=== PATIENT | male | born 1960 | race Caucasian/White ===

== ENCOUNTER → 2016-12-01 | Outpatient (CLI) | payer BC ==
[~2016-12-01] MED LIST: ASPI81TA28 PO; CLIN1CAP51 PO; LAMO150T32 PO
[2016-12-01 14:57] LABS: BASO % 0.4 %; BASO ABS # 0.02 K/uL (0-0.2); COMPLETE YES; EOS % 2.3 %; HEMATOCRIT 40.6 % (42-52); LYMPH % 32.7 %; LYMPH ABS # 1.85 K/uL (1.2-3.4); MEAN CELL VOLUME 89.6 fL (80-100); MEAN CORPUSCULAR HEMOGLOBIN 31.1 pg (25-34); MEAN CORPUSCULAR HGB CONC 34.7 g/dl (32-36); MEAN PLATELET VOLUME 10.3 fL (7.4-10.4); MONO % 6.7 %; NEUT % 57.9 %; PLATELET COUNT 266 K/uL (130-400); RED BLOOD COUNT 4.53 M/uL (4.7-6.1); WHITE BLOOD COUNT 5.66 K/uL (4.8-10.8)
[2016-12-01 15:13] LABS: PARTIAL THROMBOPLASTIN RATIO 1.2; PROTHROMBIN TIME (PATIENT) 10.2 SECONDS (9.0-12.0)
[2016-12-01 15:14] LABS: POTASSIUM 4.1 mmol/L (3.5-5.1)
== END | disposition home or self-care (01) ==
LOC: C.CPL 13:53
DX: Z01.818 Encounter for other preprocedural examination (principal)

== ENCOUNTER → 2016-12-05 | Day surgery (SDC) | payer BC ==
[2016-12-04 07:54] VITALS: Ht 188 cm; Wt 90.9 kg
[~2016-12-05] VITALS: Ht 188 cm; Wt 90.9 kg
[~2016-12-05] MED LIST changes: +ATROPINE SULFATE 0.1 MG/ML 5ML SYR IV PRN; +CEFAZOLIN 2000 MG/60 ML D5W IV SCH; +DEXAMETHASONE SOD INJ 4 MG/ML VIAL ONE; +EpHEDrine SULFATE INJ 50 MG/ML AMP IV PRN; +EpINEphrine INJ 1MG/ML AMP 1 MG/ML AMP ONE; +FENTANYL CITRATE INJ 50 MCG/1 ML 2 ML VIAL IV PRN; +FENTANYL CITRATE INJ 50 MCG/1 ML 2 ML VIAL ONE; +HYDROCODONE/ACETAMOPHEN 5/325MG TAB PO PRN; +LACTATED RINGER'S 1000ML 1,000 ML IV SCH; +LIDOCAINE 4% MPF SOAK 5 ML = 1 DOSE TOP ONE; +LIDOCAINE HCL 2% 2 ML VIAL (20MG/ML) ONE; +LIDOCAINE/EPINEPHRINE 1% INJ 50 ML VIAL ONE; +MIDAZOLAM HCL 1 MG/ML 2ML VIAL ONE; +ONDANSETRON INJ 2 MG/ML 2 ML VIAL IV PRN; +ONDANSETRON INJ 2 MG/ML 2 ML VIAL ONE; +OXYMETAZOLINE HCL 0.05% NA SPR 15 ML BTL PRN; +OXYMETAZOLINE HCL 0.05% NA SPR 15 ML BTL SCH; +PATIENT'S ALLERGY INFO NEEDS ENTERED SCH; +PROPOFOL IV EMULSION 10 MG/ML 20 ML VIAL IV ONE; +ROCURONIUM BROMIDE 10 MG/ML 5 ML VIAL IV ONE; +SUCCINYLCHOLINE CHLORIDE 20 MG/ML 10 ML VIAL IV ONE
--- NOTE | 2016-12-05 09:59 | History & Physical Bridge - [place] ---
H&P Re-Evaluation Bridge Note: I have examined the patient, reviewed the History & Physical and in the interval since the performance of the History & Physical I have noted the following changes of clinical significance: No changes noted
--- NOTE | 2016-12-05 12:00 | [facility] Operative Report ---
Operative Report Operative Date Dec 05, 2016. Pre-Operative Diagnosis Nasal Fracture, Nasal Septal Deviation Post-Operative Diagnosis Same Procedure(s) Performed Closed Reduction Of Nasal Fracture With Stabilization And Open Repair Of Septal Fracture Surgeon Dr Romero Correspondence Dictator Surgeon(s) None Estimated Blood Loss 10ml Findings 1. depressed Right nasal bone fracture with bony dorsum deviation to Right and middle third deviation to left 2. multiple septal fractures with severe L DNS as a result Specimens None I attest to the content of the Intraoperative Record and any orders documented therein. Any exceptions are noted below.
--- NOTE | 2016-12-05 12:03 | Discharge Instructions ---
Discharge Instructions Date of Service Dec 05, 2016. Admission Reason for Admission: Nasal Fracture, Nasal Septal Deviation Discharge Discharge Diagnosis / Problem: SAME Discharge Goals Goal(s): Therapeutic intervention Activity Recommendations Activity Limitations: as noted below LIGHT ACTIVITY AND NO NOSE BLOWING FOR 2 WEEKS; NO DRIVING WHILE ON [place] . Current Hospital Diet Patient's current hospital diet: Discharge Diet Recommended Diet: Regular Diet Procedures Procedures Performed: Closed Reduction Of Nasal Fracture With Stabilization And Open Repair Of Septal Fracture Pending Studies Studies pending at discharge: no Medical Emergencies . Who to Call and When: Medical Emergencies: If at any time you feel your situation is an emergency, please call 911 immediately. . Non-Emergent Contact Non-Emergency issues call your: Surgeon . . "Provider Documentation" section prepared by Curt Romero. . VTE Core Measure Inpt VTE Proph given/why not?: SCD's
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
[2016-12-05 12:53] VITALS: TEMP 36.5
--- NOTE | 2016-12-05 12:53 | Anesthesia Progress Nt - [facility] ---
Anesthesia Post Op Note Date & Time Dec 05, 2016 at 12:53 Vital Signs Pain Intensity: 2 Vital Signs Past 12 Hours Date Time Temp Pulse Resp B/P (MAP) Pulse Ox O2 Delivery O2 Flow Rate FiO2 12/05/16 12:43 65 16 96 12/05/16 12:43 36.8 67 16 12/05/16 12:41 121/81 12/05/16 12:38 65 8 12/05/16 12:38 62 8 94 12/05/16 12:36 129/88 12/05/16 12:33 66 8 93 12/05/16 12:33 65 8 12/05/16 12:31 121/85 12/05/16 12:29 36.7 64 16 121/82 94 Room Air 12/05/16 12:28 62 5 97 12/05/16 12:28 62 5 12/05/16 12:27 61 3 97 12/05/16 12:27 62 3 12/05/16 12:26 127/88 12/05/16 12:22 62 7 96 12/05/16 12:22 62 7 12/05/16 12:21 124/87 12/05/16 12:17 64 8 96 12/05/16 12:17 64 8 12/05/16 12:16 116/86 12/05/16 12:15 63 5 12/05/16 12:15 63 5 96 12/05/16 12:11 116/82 12/05/16 12:10 63 14 95 12/05/16 12:10 63 14 12/05/16 12:06 119/84 12/05/16 12:06 36.3 65 12 126/80 97 Humidified Oxygen 6 12/05/16 12:05 66 12 126/80 12/05/16 12:05 12 12/05/16 09:17 36.4 68 20 133/88 (103) 96 Room Air Notes Mental Status: alert / awake / arousable, participated in evaluation Pt Amnestic to Procedure: Yes Nausea / Vomiting: adequately controlled Pain: adequately controlled Airway Patency, RR, SpO2: stable & adequate BP & HR: stable & adequate Hydration State: stable & adequate Anesthetic Complications: no major complications apparent
[2016-12-05 13:32] VITALS: BP 127/81; PULSE 60; O2SAT 96
== END | disposition home or self-care (01) ==
LOC: X.SURG 08:51
DX: S02.2XXA Fracture of nasal bones, initial encounter for closed fracture (principal); J34.2 Deviated nasal septum; W22.8XXA Striking against or struck by other objects, initial encounter; Y92.832 Beach as the place of occurrence of the external cause; Y93.18 Activity, surfing, windsurfing and boogie boarding; E78.00 Pure hypercholesterolemia, unspecified; Z79.82 Long term (current) use of aspirin; Z79.899 Other long term (current) drug therapy

== ENCOUNTER 2016-12-17 06:38 | Inpatient (IN) | payer BC ==
[~2016-12-17] VITALS: Ht 188 cm; Wt 92.5 kg
[2016-12-17] VITALS (8 sets, daily range): BP systolic 131–144; BP diastolic 85–95; PULSE 70–87; TEMP 36.7–37.3; O2SAT 94–99; Ht 188 cm; Wt 92.5 kg
[~2016-12-17 06:38] MED LIST changes: -ASPI81TA28 PO; -ATROPINE SULFATE 0.1 MG/ML 5ML SYR IV PRN; -CEFAZOLIN 2000 MG/60 ML D5W IV SCH; -CLIN1CAP51 PO; -DEXAMETHASONE SOD INJ 4 MG/ML VIAL ONE; -EpHEDrine SULFATE INJ 50 MG/ML AMP IV PRN; -EpINEphrine INJ 1MG/ML AMP 1 MG/ML AMP ONE; -FENTANYL CITRATE INJ 50 MCG/1 ML 2 ML VIAL IV PRN; -FENTANYL CITRATE INJ 50 MCG/1 ML 2 ML VIAL ONE; -HYDROCODONE/ACETAMOPHEN 5/325MG TAB PO PRN; -LACTATED RINGER'S 1000ML 1,000 ML IV SCH; -LIDOCAINE 4% MPF SOAK 5 ML = 1 DOSE TOP ONE; -LIDOCAINE HCL 2% 2 ML VIAL (20MG/ML) ONE; -LIDOCAINE/EPINEPHRINE 1% INJ 50 ML VIAL ONE; -MIDAZOLAM HCL 1 MG/ML 2ML VIAL ONE; -ONDANSETRON INJ 2 MG/ML 2 ML VIAL IV PRN; -ONDANSETRON INJ 2 MG/ML 2 ML VIAL ONE; +OXYMETAZOLINE HCL 0.05% NA SPR 15 ML BTL NAE SCH; -OXYMETAZOLINE HCL 0.05% NA SPR 15 ML BTL PRN; -OXYMETAZOLINE HCL 0.05% NA SPR 15 ML BTL SCH; -PATIENT'S ALLERGY INFO NEEDS ENTERED SCH; -PROPOFOL IV EMULSION 10 MG/ML 20 ML VIAL IV ONE; -ROCURONIUM BROMIDE 10 MG/ML 5 ML VIAL IV ONE; -SUCCINYLCHOLINE CHLORIDE 20 MG/ML 10 ML VIAL IV ONE
[2016-12-17] MEDS ORDERED: CLIN1CAP51 PO (07:18)
[2016-12-17] MEDS ORDERED: FENTANYL CITRATE INJ 50 MCG/1 ML 2 ML VIAL ONE (08:52)
[2016-12-17] MEDS ORDERED: MIDAZOLAM HCL 1 MG/ML 2ML VIAL ONE (08:52)
[2016-12-17] MEDS ORDERED: LIDOCAINE/EPINEPHRINE 1% 20 ML VIAL ONE (09:17)
[2016-12-17] MEDS ORDERED: LIDOCAINE 4% INH SOLN 4 ML BTL ONE (09:18)
[2016-12-17] MEDS ORDERED: EpINEphrine INJ 1MG/ML AMP 1 MG/ML AMP ONE (09:18)
[2016-12-17] MEDS: CLINDAMYCIN IV 900 MG in DEXTROSE 5% 100ML 100 ML IV SCH ×3 (09:40→17:43)
[2016-12-17] MEDS ORDERED: BACITRACIN OINT 15 GM TUBE ONE (09:48)
[2016-12-17] MEDS ORDERED: ONDANSETRON INJ 2 MG/ML 2 ML VIAL ONE (10:09)
[2016-12-17] MEDS ORDERED: DEXAMETHASONE SOD INJ 4 MG/ML VIAL ONE (10:09)
[2016-12-17] MEDS ORDERED: LIDOCAINE HCL 2% 2 ML VIAL (20MG/ML) ONE (10:09)
[2016-12-17] MEDS ORDERED: SODIUM CHLORIDE 0.9% INJ 10 ML VIAL ONE (10:09)
[2016-12-17] MEDS ORDERED: SUCCINYLCHOLINE CHLORIDE 20 MG/ML 10 ML VIAL IV ONE (10:09)
[2016-12-17] MEDS ORDERED: CISATRACURIUM BESYLATE IV SOLN 2 MG/ML 10 ML VIAL ONE (10:09)
[2016-12-17] MEDS ORDERED: PROPOFOL IV EMULSION 10 MG/ML 20 ML VIAL IV ONE (10:09)
[2016-12-17] MEDS: LACTATED RINGER'S 1000ML 1,000 ML IV SCH ×2 (10:38→20:22)
--- NOTE | 2016-12-17 10:38 | [facility] Operative Report ---
Operative Report Operative Date Dec 17, 2016. Pre-Operative Diagnosis Nasal Septal Abscess/Hematoma Post-Operative Diagnosis same Procedure(s) Performed Incision and Drainage of Nasal Septal Abscess/Hematoma Surgeon Dr. Romero Clearance Rep Surgeon(s) none Estimated Blood Loss 50 ml Findings 1. old blood/clot in septal cavity with some devitalized tissue and cartilage debrided to healthy, bleeding, viable tissue/cartilage/bone 2. no purulence found today Specimens microbiology 1. Septal Mucosa- Culture and Sensitivity, Gram Stain I attest to the content of the Intraoperative Record and any orders documented therein. Any exceptions are noted below.
[2016-12-17] MEDS ORDERED: EpHEDrine SULFATE INJ 50 MG/ML AMP IV PRN (10:45)
[2016-12-17] MEDS ORDERED: ONDANSETRON INJ 2 MG/ML 2 ML VIAL IV PRN ×2 (10:45)
[2016-12-17] MEDS ORDERED: LABETALOL HCL IV 5 MG/ML 20ML IV PRN (10:45)
[2016-12-17] MEDS ORDERED: NALOXONE HCL 0.4 MG/1 ML VIAL/CARP IV PRN (10:45)
[2016-12-17] MEDS ORDERED: PROMETHAZINE HCL INJ 12.5 MG in SODIUM CHLORIDE 0.9% 50ML 50 ML IV PRN (10:45)
[2016-12-17] MEDS ORDERED: ATROPINE SULFATE 0.1 MG/ML 5ML SYR IV PRN (10:45)
[2016-12-17] MEDS ORDERED: FLUMAZENIL 0.1 MG/1 ML 10 ML VIAL IV PRN (10:45)
[2016-12-17] MEDS: FENTANYL CITRATE INJ 50 MCG/1 ML 2 ML VIAL IV PRN ×4 (10:53→11:14)
--- NOTE | 2016-12-17 11:35 | Anesthesiology Progress Note ---
Anesthesia Post Op Note Date & Time Dec 17, 2016 at 11:35 Vital Signs Pain Intensity: 4 Vital Signs Past 12 Hours Date Time Temp Pulse Resp B/P (MAP) Pulse Ox O2 Delivery O2 Flow Rate FiO2 12/17/16 11:30 70 17 134/84 98 Oxymask 3 12/17/16 11:20 80 15 130/96 98 Oxymask 4 12/17/16 11:10 71 12 143/94 98 Oxymask 4 12/17/16 11:00 69 13 132/107 100 Oxymask 10 12/17/16 10:50 73 13 155/92 100 Oxymask 10 12/17/16 10:44 36.3 70 16 150/100 99 Oxymask 10 12/17/16 07:18 36.7 80 18 131/95 (107) 99 Room Air Notes Mental Status: alert / awake / arousable, participated in evaluation Pt Amnestic to Procedure: Yes Nausea / Vomiting: adequately controlled Pain: adequately controlled Airway Patency, RR, SpO2: stable & adequate BP & HR: stable & adequate Hydration State: stable & adequate Anesthetic Complications: no major complications apparent
[2016-12-17] MEDS ORDERED: LABETALOL HCL IV 5 MG/ML 20ML IV ONE (12:15)
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
--- NOTE | 2016-12-17 14:45 | Progress Note ---
Progress Note Date of Service Dec 17, 2016. Progress Note ID Consult Dictated #[id number] A/P: 1. post op infection -Continue clinda, add ctx and vanco -? if 12/17 culture cancelled -check blood culture -thank you
[2016-12-17] MEDS ORDERED: VANCOMYCIN CONSULT ACTIVE PRN (15:15)
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
[2016-12-17] MEDS ORDERED: CEFTRIAXONE SOD INJ 2,000 MG in DEXTROSE 5% 50ML 50 ML IV SCH (16:00)
--- NOTE | 2016-12-17 16:08 | Pharmacy Progress Note ---
Pharmacy Antibiotic Consult Date of Service: Dec 17, 2016. Pharmacy Dosing Scope Pharmacy is consulted to initiate vancomycin IV dosing therapy, order appropriate labs and adjust drug dose/frequency. Subjective The patient is a 56 year old male admitted on Dec 17, 2016 at 07:35. S/P I&D nasal septal hematoma/abscess. Objective Height (Feet): 6 Height (Inches): 2 Weight (Kilograms): 92.530 Micro Results: 12/17 blood x2 pending 12/17 sinus antrum pending Recent Pertinent Medications Item Value Date Time Vancomycin HCl 530 ml @ 125 mls/hr 12/18/16 0500 1500 mg/Sodium Q12H/IV Chloride Clindamycin 106 ml @ 100 mls/hr 12/17/16 1800 Phosphate 900 mg/ Q8H/IV Dextrose Vancomycin HCl 545 ml @ 200 mls/hr 12/17/16 1700 2250 mg/Sodium TODAY@1700/IV Chloride Ceftriaxone 70 ml @ 100 mls/hr 12/17/16 1600 Sodium 2000 mg/ Q24H/IV 12/17/16 1540 Dextrose Clindamycin 106 ml @ 106 mls/hr 12/17/16 0600 Phosphate 900 mg/ PREOP/IV 12/17/16 1033 Dextrose Assessment & Plan Loading dose: vancomycin 2250 mg IV X 1 dose (~24 mg/kg) then: vancomycin 1500 mg IV every 12 hours. Goal peak level estimate: between 25-40mcg/mL. Goal trough level estimate: between 15-20 mcg/mL. Trough will be ordered for: 12/19/16 before 4th dose. Pharmacy will continue to follow and will adjust dose/frequency as necessary. Thank you
[2016-12-17] MEDS ORDERED: VANCOMYCIN INJ 2,250 MG in SODIUM CHLORIDE 0.9% 500ML 500 ML IV SCH (17:00)
[2016-12-17] MEDS: HYDROCODONE/ACETAMOPHEN 5/325MG TAB PO PRN (17:11)
[2016-12-18] MEDS: CLINDAMYCIN IV 900 MG in DEXTROSE 5% 100ML 100 ML IV SCH ×3 (01:49→17:46)
[2016-12-18 03:54] VITALS: BP 104/66; PULSE 71; TEMP 36.7; O2SAT 96
[2016-12-18] MEDS: VANCOMYCIN INJ 1,500 MG in SODIUM CHLORIDE 0.9% 500ML 500 ML IV SCH ×2 (04:13→17:40)
[2016-12-18] MEDS ORDERED: NURSING VERBAL MED ORDER ONE (06:00)
[2016-12-18 07:04] VITALS: BP 126/86; PULSE 70; TEMP 36.6; O2SAT 97
--- NOTE | 2016-12-18 07:44 | ENT PROGRESS NOTE ---
DATE: 12/18/2016 DATE: 12/18/2016 SUBJECTIVE: The patient is postoperative day #1 status post incision and drainage of septal hematoma/abscess. I appreciate Dr. Cecy Hsu's help from infectious disease on this patient. The patient was placed on clindamycin by me and then ceftriaxone and vancomycin were added. There was some confusion about the specimen that was obtained from my office on 12/16/2016 with microbiology but this has been now rectified. Inadvertently that sample was initially discarded but it was retrieved and they are going to run Gram stain and anaerobic cultures from that specimen. The Gram stain on the tissue from the operating room showed only rare white blood cells and no organisms seen. I believe that the more important sample is the sample from my office. The patient has no complaints this morning. He has had mild expected oozing of blood from his anterior nasal cavity and not too much bloody postnasal drip. Overall, he is actually breathing better through his nose now with Kowalski nasal splints than he did preoperatively. He is not having too much pain. He is afebrile and his vital signs are stable. OBJECTIVE: Examination shows that the Kowalski splints are in place and there is some expected blood and blood clot. Visualization of his external nose shows no evidence of erythema and there is no tenderness to palpation. His anterior nasal septum and columella looks less swollen and erythematous than it did yesterday. There is no evidence of bloody postnasal drip. ASSESSMENT AND PLAN: Postoperative day #1 status post incision and drainage of septal hematoma/abscess. Once again, I appreciate infectious disease input. We should wait to see what his cultures grow before deciding on his ultimate antibiotic regimen. I am wondering whether or not he may benefit from a PICC line if he is going to need long-term IV antibiotics. For now, keep him on the 3 antibiotics as recommended by infectious disease. Follow cultures closely.
[2016-12-18 08:41] LABS: CREATININE 0.82 mg/dl (0.60-1.40)
[2016-12-18] MEDS: ACETAMINOPHEN 325 MG TAB PO PRN (09:33)
[2016-12-18] MEDS: IMIPENEM/CILASTATIN IV 500 MG in DEXTROSE 5% 100ML 100 ML IV SCH ×3 (10:51→21:59)
--- NOTE | 2016-12-18 11:09 | Anesthesiology Progress Note ---
Anesthesia Post Op Note Date & Time Dec 18, 2016 at 11:09 Vital Signs Pain Intensity: 3.0 Vital Signs Past 12 Hours Date Time Temp Pulse Resp B/P (MAP) Pulse Ox O2 Delivery O2 Flow Rate FiO2 12/18/16 07:04 36.6 70 16 126/86 (99) 97 Room Air 12/18/16 03:54 36.7 71 16 104/66 (79) 96 Room Air 12/17/16 23:35 37.3 82 18 140/93 (109) 96 Room Air 12/17/16 23:26 Room Air Notes Mental Status: alert / awake / arousable, participated in evaluation Pt Amnestic to Procedure: Yes Nausea / Vomiting: adequately controlled Pain: adequately controlled Airway Patency, RR, SpO2: stable & adequate BP & HR: stable & adequate Hydration State: stable & adequate Anesthetic Complications: no major complications apparent
--- NOTE | 2016-12-18 13:07 | Progress Note ---
Subjective Date of Service: Dec 18, 2016. Subjective Pt evaluation today including: conversation w/ patient, physical exam, chart review, lab review pt seen in followup, doing well. ambulating in room. No f/c. culture from office growing probable pseudomonas species, OR culture with GNR. changed to imipenem, remains on gram + coverage as well pending final cultures. blood cultures pending. pain controlled. less weeping. eating well, no abd pain, no n/ v/d. All remaining ros reviewed and are negative. Objective Vital Signs Date Time Temp Pulse Resp B/P (MAP) Pulse Ox O2 Delivery O2 Flow Rate FiO2 12/18/16 07:37 Room Air 12/18/16 07:04 36.6 70 16 126/86 (99) 97 Room Air 12/18/16 03:54 36.7 71 16 104/66 (79) 96 Room Air 12/17/16 23:35 37.3 82 18 140/93 (109) 96 Room Air 12/17/16 23:26 Room Air 12/17/16 15:15 94 Room Air 12/17/16 15:00 36.7 84 20 143/87 (105) 94 Room Air 12/17/16 14:00 87 18 141/90 (107) 96 Room Air Physical Exam General Appearance: WD/WN, no apparent distress Eyes: normal inspection, EOMI ENT: + pertinent finding (dressing with min weeping, no bleeding) Neck: supple Respiratory/Chest: lungs clear, normal breath sounds, no respiratory distress Cardiovascular: regular rate, rhythm, no edema Abdomen: soft Extremities: non-tender, no pedal edema Neurologic/Psychiatric: alert, oriented x 3 Skin: normal color, warm/dry, no rash Laboratory Results Item Value Date Time Gram Stain - Final Resulted 12/17/16 0000 Abscess Nose Gram Stain - Final Resulted 12/17/16 1014 Sinus/Antrum Paranasal Last 24 Hours Test 12/18/16 07:27 Creatinine 0.82 mg/dl Est Creatinine Clear Calc Drug Dose 114.2 ml/min Estimated GFR () 113.0 Estimated GFR (Non- 97.5 Hepatitis C Antibody Screen NEG Assessment and Plan (1) Post op infection Assessment & Plan: will continue current abx, follow cultures, hopefully final soon. will adjust based on final micro. continue local care. d/w ent.
[2016-12-18 15:00] VITALS: BP 149/91; PULSE 63; TEMP 36.4; O2SAT 97
[2016-12-18] MEDS: HYDROCODONE/ACETAMOPHEN 5/325MG TAB PO PRN ×3 (15:05→23:51)
[2016-12-18 23:25] VITALS: BP 120/75; PULSE 63; TEMP 36.9; O2SAT 98
[2016-12-19] MEDS: CLINDAMYCIN IV 900 MG in DEXTROSE 5% 100ML 100 ML IV SCH ×2 (01:35→09:47)
[2016-12-19] MEDS ORDERED: VANCOMYCIN TROUGH SCH (03:30)
[2016-12-19] MEDS: IMIPENEM/CILASTATIN IV 500 MG in DEXTROSE 5% 100ML 100 ML IV SCH ×2 (04:21→09:47)
[2016-12-19] MEDS: VANCOMYCIN INJ 1,500 MG in SODIUM CHLORIDE 0.9% 500ML 500 ML IV SCH (04:21)
[2016-12-19 04:29] LABS: CREATININE 0.97 mg/dl (0.60-1.40)
[2016-12-19 07:06] VITALS: BP 123/83; PULSE 67; TEMP 36.7; O2SAT 95
--- NOTE | 2016-12-19 07:06 | ENT PROGRESS NOTE ---
DATE: 12/19/2016 The patient is postoperative day #2 status post incision and drainage of septal hematoma/abscess. The patient is in good spirits. He is having some increased pain on the right side and feels as if it is hard to swallow. He has not had any significant bleeding. He only has to change the nasal drip pad periodically. The patient is afebrile and his vital signs are stable. On examination, I am unable to see the right-sided splint and it looks like it has migrated posteriorly. Therefore, after cleaning out the left nasal cavity of some blood and blood clot I am able to visualize the left-sided splint. The right-sided splint is not in view. There is increased swelling along the right anterior septum. After careful inspection with a nasal speculum and suction, I am able to see the splint which has migrated approximately 2 cm posteriorly. Therefore, I removed the splint with a bayonet forceps and removed the suture and left-sided splint as well. Overall, he has inflamed tissue which is worse on the right than the left, but there is no ballotable fluid collection. There is more erythema involving the right anterior septum compared to yesterday. The left anterior septum is not as erythematous. There is a mild amount of granulation tissue present. The nasal cavities were sprayed with topical Afrin and lidocaine. All the blood and blood clots were suctioned from the nasal cavities bilaterally. His left nasal airway is widely patent. His right nasal airway is mildly to moderately blocked anteriorly due to some swelling. I do not think that he has a recurrence of a septal hematoma or abscess at this stage, but I want to monitor it closely. ASSESSMENT AND PLAN: A 56-year-old male postoperative day #2 status post incision and drainage of septal hematoma/abscess. Once again, I appreciate infectious disease's input into this case. It appears that there may be pseudomonas and the sensitivities are still pending. Ultimate antibiotic choice and duration will depend on the organism isolated and its sensitivities. I want to keep the patient n.p.o. after breakfast this morning and I will round on him at lunchtime. If he does not have any worsening of his septal swelling, then I will continue to monitor clinically. If there is worsening, then he may need to be taken to the operating room tonight for repeat incision and drainage/debridement. I am hopeful that this is not the case. Overall, his nasal septum and his airway is much improved compared to the preoperative state. I cleaned off all of the Betadine from his nose so that we can monitor for external erythema. So far on palpation, he has enough cartilaginous and bony support and I am not at this time concerned about ultimate saddle nose deformity. I will monitor the patient very closely. The patient is in agreement with this plan. MICHELLE
[2016-12-19] MEDS: OXYMETAZOLINE HCL 0.05% NA SPR 15 ML BTL SCH ×3 (09:00→13:35)
[2016-12-19] MEDS: ACETAMINOPHEN 325 MG TAB PO PRN (09:13)
--- NOTE | 2016-12-19 10:08 | Progress Note ---
Subjective Date of Service: Dec 19, 2016. Subjective Pt evaluation today including: conversation w/ patient, physical exam, chart review, lab review pt feeling much better. denies pain, no f/c. packing and gauze out, tolerated well. Denies drainage or bleeding. No pain. tolerating abx. all remaining ros reviewed and are negative. culture from office and OR with box sensitive pseudomonas. blood cultures remain negative. Objective Vital Signs Date Time Temp Pulse Resp B/P (MAP) Pulse Ox O2 Delivery O2 Flow Rate FiO2 12/19/16 07:30 Room Air 12/19/16 07:06 36.7 67 16 123/83 (96) 95 Room Air 12/18/16 23:25 36.9 63 18 120/75 (90) 98 Room Air 12/18/16 19:45 Room Air 12/18/16 15:00 36.4 63 20 149/91 (110) 97 Room Air Physical Exam General Appearance: WD/WN, no apparent distress Eyes: normal inspection, EOMI Neck: supple Respiratory/Chest: lungs clear, normal breath sounds, no respiratory distress Cardiovascular: regular rate, rhythm, no edema Abdomen: non tender, soft Extremities: non-tender, normal inspection, no pedal edema Neurologic/Psychiatric: alert, oriented x 3 Skin: normal color, warm/dry, no rash Comments: gauze removed, no drainage or bleeding noted, no swelling, no tenderness to light palpation maxilla. no erythema. Laboratory Results Item Value Date Time Gram Stain - Final Resulted 12/17/16 0000 Abscess Nose Gram Stain - Final Resulted 12/17/16 1014 Sinus/Antrum Paranasal Blood Culture - Preliminary Resulted 12/17/16 1542 Blood NO GROWTH TO DATE. Blood Culture - Preliminary Resulted 12/17/16 1551 Blood NO GROWTH TO DATE. Gram Stain - Final Resulted 12/17/16 1014 Sinus/Antrum Paranasal Gram Stain - Final Resulted 12/17/16 0000 Abscess Nose Last 24 Hours Test 12/19/16 03:50 Creatinine 0.97 mg/dl Est Creatinine Clear Calc Drug Dose 96.6 ml/min Estimated GFR () 99.3 Estimated GFR (Non- 85.7 Vancomycin Level Trough 11.0 mcg/ml Assessment and Plan (1) Post op infection Assessment & Plan: culture with box sensitive pseudomonas, will change abx to po cipro 500mg po bid, would give additional 3 weeks. plan to follow in office post d/c to assess response to therapy. ok for d/c from ID standpoint when otherwise stable.
--- NOTE | 2016-12-19 10:15 | Discharge Instructions ---
Discharge Instructions Date of Service Dec 19, 2016. Admission Reason for Admission: Nasal Septal Hematoma/Abscess Discharge Discharge Diagnosis / Problem: SAME Discharge Goals Goal(s): Therapeutic intervention Activity Recommendations Activity Limitations: as noted below LIGHT ACTIVITY FOR 1 WEEK; NO DRIVING WHILE ON [place] . Current Hospital Diet Patient's current hospital diet: Regular Diet Discharge Diet Recommended Diet: Regular Diet Procedures Procedures Performed: Incision and Drainage of Nasal Septal Abscess/Hematoma Pending Studies Studies pending at discharge: no Medical Emergencies . Who to Call and When: Medical Emergencies: If at any time you feel your situation is an emergency, please call 911 immediately. . Non-Emergent Contact Non-Emergency issues call your: Surgeon . . "Provider Documentation" section prepared by Curt Romero. . VTE Core Measure Inpt VTE Proph given/why not?: SCD's
[2016-12-19] MEDS ORDERED: CIPROFLOXACIN 500 MG TAB PO SCH (10:30)
--- NOTE | 2016-12-19 12:35 | DISCHARGE SUMMARY ---
DATE OF DISCHARGE: 12/19/2016 ADMISSION DIAGNOSIS: Septal hematoma and abscess. DISCHARGE DIAGNOSIS: Same. HOSPITAL COURSE: The patient is a 56-year-old male who sustained nasal fractures and a septal fracture and underwent a closed reduction of a nasal fracture and open repair of a septal fracture on 12/05/2016. He developed a septal hematoma and abscess and presented for urgent incision and drainage on 12/17/2016 with intraoperative findings of severe bilateral anterior septal swelling with erythema and fluctuance and no purulence within the septal cavity but rather septal hematoma with old blood and some devitalized tissue including small pieces of cartilage and bone which were completely evaluated and debrided. Intraoperative cultures as well as cultures from my office the day before revealed pseudomonas that was sensitive to all antibiotics tested. Infectious disease was consulted and initially he was placed on broad-spectrum IV antibiotic coverage but then it was recommended the he can be discharged to home today on ciprofloxacin 500 mg p.o. b.i.d. for 3 weeks. The patient's splints were removed earlier this morning and his septal mucosa is inflamed but healing well. There is no fluctuance. Overall he is feeling well and throughout his hospital course he has been afebrile. I have discharged him to home on ciprofloxacin as described above and he also has already a pain prescription for [place] to be used as needed although he is not complaining of any pain. He has a follow-up appointment with me on 12/23/2016 at 11 a.m. I have asked him to call me if he has any fever, worsening nasal obstruction or pain or any other symptomatology that is concerning to him. He was discharged to home in satisfactory condition on 12/19/2016 at 12 p.m.
[2016-12-19 12:46] VITALS: BP 123/83; PULSE 67; TEMP 36.7; O2SAT 95
[2016-12-19] MEDS ORDERED: SODIUM CHLORIDE 0.65% NA SOLN 45 ML (OCEAN) ONE (13:09)
[2016-12-19] MEDS ORDERED: NURSING DECISION MEDICATION ORDER SCH (13:30)
[2016-12-19] MEDS ORDERED: SODIUM CHLORIDE 0.65% NA SOLN 45 ML (OCEAN) PRN (13:30)
== END 2016-12-19 13:54 | disposition home or self-care (01) | DRG 857 ==
LOC: C.OR 06:38 → C.MSN 07:35 → ENRESERV 11:36
PROC: 0NB Head and Facial Bones, Excision (ICD-10-PCS; principal; 2016-12-17 08:15)
DX: T81.4XXA Infection following a procedure, initial encounter (principal); M96.841 Postprocedural hematoma of a musculoskeletal structure following other procedure; Y84.9 Medical procedure, unspecified as the cause of abnormal reaction of the patient, or of later complication, without mention of misadventure at the time of the procedure

== ENCOUNTER → 2017-04-19 | Outpatient (CLI) | payer OTHER ==
[~2017-04-19] MED LIST changes: +LAMO150T PO; -LAMO150T32 PO; -OXYMETAZOLINE HCL 0.05% NA SPR 15 ML BTL NAE SCH
--- NOTE | 2017-04-19 12:17 | DIAGNOSTIC IMAGING REPORT ---
RIGHT HIP 2 VIEWS HISTORY: PAIN IN RIGHT HIP COMPARISON: None. FINDINGS: There is no fracture or dislocation. Soft tissues are unremarkable. The visualized pelvic bones are intact. Cartilage spaces are preserved within the right hip. There is sclerosis at the superior acetabulum. This suggests minimal degenerative change. IMPRESSION: No fracture or dislocation within the right hip. Electronically signed by: Luis Manuel Spicer M.D. 04/19/2017 12:15 PM Dictated Date/Time: 04/19/2017 12:14 PM
== END | disposition home or self-care (01) ==
LOC: C.RAD 11:56
PROVIDERS: ATTEND Family Medicine
DX: M25.551 Pain in right hip (principal)